=== PATIENT | female | born 1985 | race Caucasian/White ===

== ENCOUNTER 2018-08-02 22:38 | Emergency (ER) | payer SELFPAY ==
[~2018-08-02] VITALS: Ht 165.1 cm; Wt 97.3 kg
[2018-08-02] MEDS ORDERED: IBUP-2071 PO (22:46)
[2018-08-03] MEDS ORDERED: ACETAMINOPHEN 325 MG TABLET PO ONE (04:00)
[2018-08-03 04:06] VITALS: BP 119/71
== END 2018-08-03 04:06 | disposition home or self-care (01) ==
LOC: EMS 22:40
DX: S32.019A Unspecified fracture of first lumbar vertebra, initial encounter for closed fracture (principal); S09.90XA Unspecified injury of head, initial encounter; J45.909 Unspecified asthma, uncomplicated; F32.9 Major depressive disorder, single episode, unspecified; F41.9 Anxiety disorder, unspecified; F17.210 Nicotine dependence, cigarettes, uncomplicated; Z88.0 Allergy status to penicillin; Z91.040 Latex allergy status; W18.39XA Other fall on same level, initial encounter; Y93.01 Activity, walking, marching and hiking; Y92.89 Other specified places as the place of occurrence of the external cause; Y99.8 Other external cause status
CPT/HCPCS: 72100

== ENCOUNTER 2018-08-19 05:34 | Emergency (ER) | payer MEDICAID ==
[~2018-08-19] VITALS: Ht 162.6 cm; Wt 96.0 kg
[~2018-08-19 05:34] MED LIST: IBUP-2071 PO
[2018-08-19 06:00] LABS: APPEARANCE,URINE CLOUDY (CLEAR); BILIRUBIN,URINE PRELIM. POSITIVE (NEGATIVE); GLUCOSE, URINE (UA) NEGATIVE (NEGATIVE); KETONES,URINE TRACE mg/dL (NEGATIVE); LEUKOCYTE ESTERASE ,URINE NEGATIVE (NEGATIVE); NITRATE,URINE NEGATIVE (NEGATIVE); OCCULT BLOOD,URINE TRACE (NEGATIVE); PH,URINE 5.5 (5.0-8.0); PROTEIN,URINE TRACE (NEGATIVE)
[2018-08-19 06:04] LABS: BACTERIA,URINE Rare /HPF (None Seen); WBC,URINE 0-2 /HPF (0-5)
[2018-08-19 06:05] LABS: MUCUS,URINE Moderate LPF (None Seen); SQUAMOUS EPITHELIAL CELL,UR Moderate /LPF (None Seen)
[2018-08-19 06:29] VITALS: BP 112/78
== END 2018-08-19 06:37 | disposition home or self-care (01) ==
LOC: EMS 05:35
DX: N34.2 Other urethritis (principal); L30.4 Erythema intertrigo; J45.909 Unspecified asthma, uncomplicated; F41.9 Anxiety disorder, unspecified; F32.9 Major depressive disorder, single episode, unspecified; F17.210 Nicotine dependence, cigarettes, uncomplicated; F84.0 Autistic disorder; Z91.040 Latex allergy status; Z88.0 Allergy status to penicillin

== ENCOUNTER 2019-02-03 21:59 | Emergency (ER) | payer MEDICAID ==
[~2019-02-03] VITALS: Ht 162.6 cm; Wt 77.3 kg
[2019-02-03 22:51] LABS: EOSINOPHILS % (AUTO) 1.4 % (1.0-6.0); HEMATOCRIT 33.4 % (36-46); HEMOGLOBIN 10.5 g/dL (12.0-16.0); LYMPHOCYTES # (AUTO) 2.3 K/uL (1.0-4.8); LYMPHOCYTES % (AUTO) 26.1 % (22.0-44.0); MEAN CORPUSCULAR HEMOGLOBIN 23.8 pg (26.0-34.0); MEAN CORPUSCULAR HGB CONC 31.5 G/dL (31.0-37.0); MEAN CORPUSCULAR VOLUME 76 fL (80-100); MONOCYTES # (AUTO) 0.7 K/uL (0.1-1.0); NEUTROPHILS # (AUTO) 5.7 K/uL (1.8-7.7); NEUTROPHILS % (AUTO) 63.5 % (40.0-70.0); PLATELET COUNT (AUTO) 174 K/uL (150-450); RED BLOOD CELL COUNT(AUTO) 4.42 MIL/uL (4.00-5.20); RED CELL DISTRIBUTION WIDTH 16.7 % (11.5-14.5)
[2019-02-03 23:08] LABS: ANION GAP 8 mmol/L (8-16); CALCIUM, TOTAL 8.3 mg/dL (8.8-10.5); CARBON DIOXIDE 26 mmol/L (22-29); CHLORIDE 104 mmol/L (98-107); GLOMERULAR FILTR. RATE CALC > 60 mL/min (>60); GLUCOSE,RANDOM 113 mg/dL (70-110); POTASSIUM 3.5 mmol/L (3.5-5.1); SODIUM SERUM 138 mmol/L (136-145); UREA NITROGEN, BLOOD 10 mg/dL (7-18)
[2019-02-03 23:13] LABS: ALANINE AMINOTRANSFERASE 8 U/L (12-78); ALBUMIN 3.5 g/dL (3.4-5.0); ALKALINE PHOSPHATASE 94 U/L (46-116); ASPARTATE AMINOTRANSFERASE 8 U/L (15-37); BILIRUBIN,TOTAL 0.1 mg/dL (0.1-1.0); TOTAL PROTEIN, SERUM 6.8 g/dL (6.4-8.2)
[2019-02-03 23:35] LABS: AMPHET/METH SCREEN,URINE NEGATIVE (NEGATIVE); BARBITURATE SCREEN, URINE NEGATIVE (NEGATIVE); BENZODIAZEPINES SCREEN,URINE NEGATIVE (NEGATIVE); CANNABINOID SCREEN,URINE POSITIVE (NEGATIVE); COCAINE SCREEN,URINE NEGATIVE (NEGATIVE); METHADONE SCREEN, URINE NEGATIVE (NEGATIVE); OPIATE SCREEN,URINE NEGATIVE (NEGATIVE); PHENCYCLIDINE SCREEN,URINE NEGATIVE (NEGATIVE)
[2019-02-03 23:38] LABS: HCG,QUANTITATIVE < 1 mIU/mL (0-6)
[2019-02-04] MEDS ORDERED: IBUPROFEN 600 MG TABLET PO ONE (01:30)
[2019-02-04 01:35] VITALS: BP 116/78
== END 2019-02-04 02:03 | disposition home or self-care (01) ==
LOC: EMS 22:03
DX: F12.929 Cannabis use, unspecified with intoxication, unspecified (principal); R07.89 Other chest pain; F41.9 Anxiety disorder, unspecified; J45.909 Unspecified asthma, uncomplicated; F32.9 Major depressive disorder, single episode, unspecified; F17.210 Nicotine dependence, cigarettes, uncomplicated; Z88.0 Allergy status to penicillin; Z91.040 Latex allergy status
CPT/HCPCS: 36415; 80053; 80307; 84484; 84702; 85025; 93005; 99284; 99406; G0480

== ENCOUNTER 2019-10-06 05:02 | Inpatient (IN) | payer MEDICAID, OTHER ==
[~2019-10-06] VITALS: Ht 157.5 cm; Wt 87.5 kg
[2019-10-06 06:38] LABS: BASOPHILS % (AUTO) 0.4 % (0.0-2.0); EOSINOPHILS % (AUTO) 0.9 % (1.0-6.0); HEMATOCRIT 36.5 % (36-46); HEMOGLOBIN 11.9 g/dL (12.0-16.0); LYMPHOCYTES # (AUTO) 2.1 K/uL (1.0-4.8); LYMPHOCYTES % (AUTO) 25.2 % (22.0-44.0); MEAN CORPUSCULAR HEMOGLOBIN 25.4 pg (26.0-34.0); MEAN CORPUSCULAR HGB CONC 32.6 G/dL (31.0-37.0); MEAN CORPUSCULAR VOLUME 78 fL (80-100); MONOCYTES # (AUTO) 0.6 K/uL (0.1-1.0); MONOCYTES % (AUTO) 6.8 % (2.0-9.0); NEUTROPHILS # (AUTO) 5.6 K/uL (1.8-7.7); NEUTROPHILS % (AUTO) 66.7 % (40.0-70.0); PLATELET COUNT (AUTO) 159 K/uL (150-450); RED BLOOD CELL COUNT(AUTO) 4.68 MIL/uL (4.00-5.20); RED CELL DISTRIBUTION WIDTH 15.8 % (11.5-14.5)
[2019-10-06 06:49] LABS: ANION GAP 9 mmol/L (8-16); CALCIUM, TOTAL 9.1 mg/dL (8.8-10.5); CARBON DIOXIDE 28 mmol/L (22-29); CHLORIDE 104 mmol/L (98-107); CREATININE 0.63 mg/dL (0.60-1.30); GLOMERULAR FILTR. RATE CALC > 60 mL/min (>60); GLUCOSE,RANDOM 88 mg/dL (70-110); POTASSIUM 3.8 mmol/L (3.5-5.1); SODIUM SERUM 141 mmol/L (136-145); UREA NITROGEN, BLOOD 9 mg/dL (7-18)
[2019-10-06 06:58] LABS: AMPHET/METH SCREEN,URINE NEGATIVE (NEGATIVE); BARBITURATE SCREEN, URINE POSITIVE (NEGATIVE); BENZODIAZEPINES SCREEN,URINE NEGATIVE (NEGATIVE); CANNABINOID SCREEN,URINE POSITIVE (NEGATIVE); COCAINE SCREEN,URINE NEGATIVE (NEGATIVE); METHADONE SCREEN, URINE NEGATIVE (NEGATIVE); OPIATE SCREEN,URINE NEGATIVE (NEGATIVE)
[2019-10-06 06:59] LABS: PHENCYCLIDINE SCREEN,URINE NEGATIVE (NEGATIVE)
[2019-10-06 07:01] LABS: ALANINE AMINOTRANSFERASE 21 U/L (12-78); ALBUMIN 3.9 g/dL (3.4-5.0); ALKALINE PHOSPHATASE 87 U/L (46-116); ASPARTATE AMINOTRANSFERASE 11 U/L (15-37); BILIRUBIN,TOTAL 0.2 mg/dL (0.1-1.0); HCG,QUANTITATIVE < 1 mIU/mL (0-6); TOTAL PROTEIN, SERUM 7.8 g/dL (6.4-8.2)
[2019-10-06] MEDS ORDERED: PERMETHRIN 5% 60 GM CREAM TP ONE ×2 (08:00→16:30)
[2019-10-06] MEDS ORDERED: LOPERAMIDE HCL 2 MG CAPSULE PO PRN (09:00)
[2019-10-06] MEDS ORDERED: GuaiFENesin/D-METHORPHAN [SUGAR-FREE] 200-20MG/10 ML SYRUP UDCUP PO PRN (09:00)
[2019-10-06] MEDS: FLUoxetine HCL 20 MG CAPSULE PO SCH (09:00)
[2019-10-06] MEDS ORDERED: TUBERCULIN, PURIFIED PROTEIN DERIVATIVE 5 TU/0.1 ML SYRINGE ID ONE (09:00)
[2019-10-06] MEDS ORDERED: HydrOXYzine PAMOATE 50 MG CAPSULE PO PRN (09:00)
[2019-10-06] MEDS ORDERED: MAGNESIUM HYDROXIDE SUSPENSION 30 ML UDCUP PO PRN (09:00)
[2019-10-06] MEDS ORDERED: PROMETHAZINE HCL 25 MG TABLET PO PRN (09:00)
[2019-10-06] MEDS ORDERED: ACETAMINOPHEN 325 MG TABLET PO PRN (09:00)
[2019-10-06] MEDS ORDERED: MAG HYDROX/AL HYDROX/SIMETH ES 30 ML SUSPENSION UDCUP PO PRN (09:00)
[2019-10-06] MEDS: NALTREXONE HCL 50 MG TABLET PO SCH (09:00)
[2019-10-06] MEDS: MULTIVITAMINS WITH MINERALS, THERAPEUTIC TABLET PO SCH (09:00)
[2019-10-06] MEDS ORDERED: OLANZapine 5 MG RAPDIS TABLET PO PRN (09:00)
[2019-10-06] MEDS: THIAMINE MONONITRATE 100 MG TABLET PO SCH ×2 (09:35→16:12)
[2019-10-06] MEDS: FOLIC ACID 1 MG TABLET PO SCH (09:35)
[2019-10-06 17:51] VITALS: BP 118/91
[2019-10-06] MEDS: LORazepam 2 MG TABLET PO PRN (18:05)
[2019-10-06] MEDS: OLANZapine 5 MG RAPDIS TABLET PO SCH (20:48)
[2019-10-07] MEDS: LORazepam 2 MG TABLET PO PRN ×2 (01:29→12:37)
[2019-10-07] MEDS: ZOLPIDEM TARTRATE 10 MG TABLET PO PRN ×2 (01:29→20:47)
[2019-10-07] MEDS ORDERED: INFLUENZA VIRUS VACCINE QVS 2019-20 (3YR+)/PF 60 MCG/0.5 ML SYRINGE IM ONE (03:15)
[2019-10-07 03:29] VITALS: BP 112/82
[2019-10-07 08:00] VITALS: BP 121/88
[2019-10-07] MEDS: FLUoxetine HCL 20 MG CAPSULE PO SCH (08:48)
[2019-10-07] MEDS: THIAMINE MONONITRATE 100 MG TABLET PO SCH ×2 (08:51→17:18)
[2019-10-07] MEDS: NALTREXONE HCL 50 MG TABLET PO SCH (08:51)
[2019-10-07] MEDS: MULTIVITAMINS WITH MINERALS, THERAPEUTIC TABLET PO SCH (08:51)
[2019-10-07] MEDS: FOLIC ACID 1 MG TABLET PO SCH (08:51)
[2019-10-07] MEDS ORDERED: ALBUTEROL SULFATE/IPRATROPIUM 100-20 MCG/SPRAY 4 GM INHALER IH PRN (12:30)
[2019-10-07 17:48] VITALS: BP 132/72
[2019-10-07] MEDS: OLANZapine 5 MG RAPDIS TABLET PO SCH (20:39)
[2019-10-07] MEDS ORDERED: LORazepam 2 MG/ML VIAL IM ONE (21:30)
[2019-10-07] MEDS ORDERED: HALOPERIDOL LACTATE 5 MG/ML VIAL IM ONE (21:30)
[2019-10-07] MEDS ORDERED: DiphenhydrAMINE HCL 50 MG/ML VIAL IM ONE (21:30)
[2019-10-08] MEDS: MULTIVITAMINS WITH MINERALS, THERAPEUTIC TABLET PO SCH (09:00)
[2019-10-08] MEDS: FLUoxetine HCL 20 MG CAPSULE PO SCH (09:00)
[2019-10-08] MEDS: FOLIC ACID 1 MG TABLET PO SCH (09:00)
[2019-10-08] MEDS: THIAMINE MONONITRATE 100 MG TABLET PO SCH ×2 (09:00→16:13)
[2019-10-08] MEDS: NALTREXONE HCL 50 MG TABLET PO SCH (09:00)
[2019-10-08] MEDS: LORazepam 2 MG TABLET PO PRN (17:46)
[2019-10-08 18:00] VITALS: BP 121/76
[2019-10-08] MEDS ORDERED: OLAN5TAB30 PO (20:09)
[2019-10-08] MEDS ORDERED: NALT50TA PO (20:09)
[2019-10-08] MEDS ORDERED: FLUO-191 PO (20:09)
[2019-10-08] MEDS: ZOLPIDEM TARTRATE 10 MG TABLET PO PRN (20:47)
[2019-10-08] MEDS: OLANZapine 5 MG RAPDIS TABLET PO SCH (20:47)
[2019-10-09] MEDS: LORazepam 2 MG TABLET PO PRN (08:10)
[2019-10-09] MEDS: FLUoxetine HCL 20 MG CAPSULE PO SCH (08:10)
[2019-10-09] MEDS: NALTREXONE HCL 50 MG TABLET PO SCH (08:10)
[2019-10-09] MEDS: THIAMINE MONONITRATE 100 MG TABLET PO SCH (09:00)
[2019-10-09] MEDS: FOLIC ACID 1 MG TABLET PO SCH (09:00)
[2019-10-09] MEDS: MULTIVITAMINS WITH MINERALS, THERAPEUTIC TABLET PO SCH (09:00)
== END 2019-10-09 13:00 | disposition home or self-care (01) | DRG 885 ==
LOC: EMS 05:02 → 3EI 09:28
PROVIDERS: ADMIT Psychiatry & Neurology Psychiatry; ATTEND Psychiatry & Neurology Psychiatry
DX: F25.9 Schizoaffective disorder, unspecified (principal); Z59.0 Homelessness; F41.9 Anxiety disorder, unspecified; Z91.19 Patient's noncompliance with other medical treatment and regimen; F84.0 Autistic disorder; F17.210 Nicotine dependence, cigarettes, uncomplicated; F12.20 Cannabis dependence, uncomplicated; J44.9 Chronic obstructive pulmonary disease, unspecified; D64.9 Anemia, unspecified; Z88.0 Allergy status to penicillin; Z88.8 Allergy status to other drugs, medicaments and biological substances
CPT/HCPCS: G0480; J1200; J1630; J2060

== ENCOUNTER 2019-11-07 14:40 | Inpatient (IN) | payer MEDICAID ==
[~2019-11-07 14:40] MED LIST changes: +FLUO-191 PO; -IBUP-2071 PO; +NALT50TA PO; +OLAN5TAB30 PO
[2019-11-07 15:29] VITALS: BP 130/90
[2019-11-07] MEDS ORDERED: GuaiFENesin/D-METHORPHAN [SUGAR-FREE] 200-20MG/10 ML SYRUP UDCUP PO PRN (16:15)
[2019-11-07] MEDS ORDERED: MAG HYDROX/AL HYDROX/SIMETH ES 30 ML SUSPENSION UDCUP PO PRN (16:15)
[2019-11-07] MEDS ORDERED: LOPERAMIDE HCL 2 MG CAPSULE PO PRN (16:15)
[2019-11-07] MEDS ORDERED: PROMETHAZINE HCL 25 MG TABLET PO PRN ×2 (16:15)
[2019-11-07] MEDS ORDERED: HydrOXYzine PAMOATE 50 MG CAPSULE PO PRN (16:15)
[2019-11-07] MEDS ORDERED: ACETAMINOPHEN 325 MG TABLET PO PRN (16:15)
[2019-11-07] MEDS ORDERED: MAGNESIUM HYDROXIDE SUSPENSION 30 ML UDCUP PO PRN (16:15)
[2019-11-07] MEDS ORDERED: PALIPERIDONE PALMITATE 234 MG/1.5 ML SYRINGE IM ONE (16:15)
[2019-11-07] MEDS: THIAMINE 100 MG TABLET PO SCH (17:00)
[2019-11-07] MEDS ORDERED: PNEUMOCOCCAL VACCINE POLYVALENT 0.5 ML VIAL [PPSV23] IM ONE (19:45)
[2019-11-07] MEDS: PALIPERIDONE 3 MG ER TABLET PO SCH (20:25)
[2019-11-08] MEDS: LORazepam 2 MG TABLET PO PRN ×3 (00:09→16:53)
[2019-11-08] MEDS: FOLIC ACID 1 MG TABLET PO SCH (09:00)
[2019-11-08] MEDS: NALTREXONE HCL 50 MG TABLET PO SCH (09:00)
[2019-11-08] MEDS: MULTIVITAMINS WITH MINERALS, THERAPEUTIC TABLET PO SCH (09:00)
[2019-11-08] MEDS: FLUoxetine HCL 20 MG CAPSULE PO SCH (09:00)
[2019-11-08] MEDS: THIAMINE 100 MG TABLET PO SCH ×2 (09:00→16:54)
[2019-11-08] MEDS: PALIPERIDONE 1.5 MG ER TABLET PO PRN (12:28)
[2019-11-08] MEDS: BACITRACIN 28.4 GM OINTMENT TP SCH ×2 (12:28→17:05)
[2019-11-08] MEDS: PALIPERIDONE 3 MG ER TABLET PO SCH (20:01)
[2019-11-08] MEDS: ZOLPIDEM TARTRATE 10 MG TABLET PO PRN (22:55)
[2019-11-09 02:36] VITALS: BP 120/85
[2019-11-09] MEDS: LORazepam 2 MG TABLET PO PRN ×2 (03:25→12:28)
[2019-11-09] MEDS: MULTIVITAMINS WITH MINERALS, THERAPEUTIC TABLET PO SCH (09:00)
[2019-11-09] MEDS: FOLIC ACID 1 MG TABLET PO SCH (09:00)
[2019-11-09] MEDS: THIAMINE 100 MG TABLET PO SCH ×2 (09:00→16:36)
[2019-11-09] MEDS: FLUoxetine HCL 20 MG CAPSULE PO SCH (09:00)
[2019-11-09] MEDS: NALTREXONE HCL 50 MG TABLET PO SCH (09:00)
[2019-11-09] MEDS: BACITRACIN 28.4 GM OINTMENT TP SCH ×2 (10:01→16:45)
[2019-11-09] MEDS: PALIPERIDONE 1.5 MG ER TABLET PO PRN (14:48)
[2019-11-09] MEDS: PALIPERIDONE 3 MG ER TABLET PO SCH (20:15)
[2019-11-09] MEDS: ZOLPIDEM TARTRATE 10 MG TABLET PO PRN (20:16)
[2019-11-10] MEDS: THIAMINE 100 MG TABLET PO SCH ×2 (08:09→16:26)
[2019-11-10] MEDS: FLUoxetine HCL 20 MG CAPSULE PO SCH (08:10)
[2019-11-10] MEDS: BACITRACIN 28.4 GM OINTMENT TP SCH ×2 (08:11→16:26)
[2019-11-10] MEDS: NALTREXONE HCL 50 MG TABLET PO SCH (08:12)
[2019-11-10] MEDS: FOLIC ACID 1 MG TABLET PO SCH (08:15)
[2019-11-10] MEDS: MULTIVITAMINS WITH MINERALS, THERAPEUTIC TABLET PO SCH (08:15)
[2019-11-10 08:31] LABS: APPEARANCE,URINE CLOUDY (CLEAR); BILIRUBIN,URINE NEGATIVE (NEGATIVE); GLUCOSE, URINE (UA) NEGATIVE (NEGATIVE); KETONES,URINE NEGATIVE (NEGATIVE); LEUKOCYTE ESTERASE ,URINE SMALL (NEGATIVE); NITRATE,URINE NEGATIVE (NEGATIVE); OCCULT BLOOD,URINE NEGATIVE (NEGATIVE); PH,URINE 5.5 (5.0-8.0); PROTEIN,URINE NEGATIVE (NEGATIVE); UROBILINOGEN,URINE 0.2 mg/dL (<=1.0)
[2019-11-10 08:40] LABS: AMPHET/METH SCREEN,URINE NEGATIVE (NEGATIVE); BARBITURATE SCREEN, URINE NEGATIVE (NEGATIVE); BENZODIAZEPINES SCREEN,URINE NEGATIVE (NEGATIVE); CANNABINOID SCREEN,URINE POSITIVE (NEGATIVE); COCAINE SCREEN,URINE NEGATIVE (NEGATIVE); METHADONE SCREEN, URINE NEGATIVE (NEGATIVE); OPIATE SCREEN,URINE NEGATIVE (NEGATIVE)
[2019-11-10 08:41] LABS: PHENCYCLIDINE SCREEN,URINE NEGATIVE (NEGATIVE)
[2019-11-10 09:57] LABS: BACTERIA,URINE None Seen /HPF (None Seen); RBC,URINE None Seen /HPF (0-2); WBC,URINE 0-2 /HPF (0-5)
[2019-11-10 09:58] LABS: SQUAMOUS EPITHELIAL CELL,UR Moderate /LPF (None Seen)
[2019-11-10 16:19] VITALS: BP 126/78
[2019-11-10] MEDS: ZOLPIDEM TARTRATE 10 MG TABLET PO PRN (20:43)
[2019-11-10] MEDS ORDERED: PALIPERIDONE 6 MG ER TABLET PO SCH (21:00)
[2019-11-11 08:20] VITALS: BP 128/74
[2019-11-11] MEDS: FOLIC ACID 1 MG TABLET PO SCH (08:20)
[2019-11-11] MEDS: MULTIVITAMINS WITH MINERALS, THERAPEUTIC TABLET PO SCH (08:20)
[2019-11-11] MEDS: THIAMINE 100 MG TABLET PO SCH ×2 (08:20→16:30)
[2019-11-11] MEDS: BACITRACIN 28.4 GM OINTMENT TP SCH ×2 (08:21→17:28)
[2019-11-11] MEDS: FLUoxetine HCL 20 MG CAPSULE PO SCH (08:22)
[2019-11-11] MEDS: PANTOPRAZOLE SODIUM 40 MG DR TABLET PO SCH (08:23)
[2019-11-11] MEDS: NALTREXONE HCL 50 MG TABLET PO SCH (08:27)
[2019-11-11] MEDS ORDERED: PALIPERIDONE PALMITATE 156 MG/ML SYRINGE IM ONE (09:00)
[2019-11-11] MEDS: LORazepam 2 MG TABLET PO PRN ×2 (10:52→23:58)
[2019-11-11 16:23] VITALS: BP 147/76
[2019-11-11] MEDS: ZOLPIDEM TARTRATE 10 MG TABLET PO PRN (20:41)
[2019-11-11] MEDS ORDERED: PALIPERIDONE 3 MG ER TABLET PO SCH (21:00)
[2019-11-12 01:06] VITALS: BP 133/89
[2019-11-12] MEDS: PANTOPRAZOLE SODIUM 40 MG DR TABLET PO SCH (08:16)
[2019-11-12] MEDS: FLUoxetine HCL 20 MG CAPSULE PO SCH (08:16)
[2019-11-12] MEDS: NALTREXONE HCL 50 MG TABLET PO SCH (08:16)
[2019-11-12] MEDS: BACITRACIN 28.4 GM OINTMENT TP SCH ×2 (08:17→17:12)
[2019-11-12] MEDS: FOLIC ACID 1 MG TABLET PO SCH (08:25)
[2019-11-12] MEDS: THIAMINE 100 MG TABLET PO SCH ×2 (08:26→17:00)
[2019-11-12] MEDS: MULTIVITAMINS WITH MINERALS, THERAPEUTIC TABLET PO SCH (08:26)
[2019-11-12 09:03] VITALS: BP 125/71
[2019-11-12] MEDS: LORazepam 2 MG TABLET PO PRN (09:52)
[2019-11-12 14:40] VITALS: BP 132/80
[2019-11-12] MEDS ORDERED: FLUO-191 PO (15:16)
[2019-11-12] MEDS ORDERED: NALT50TA PO (15:16)
[2019-11-12] MEDS ORDERED: PALI3TAB14 PO (15:16)
[2019-11-12 16:10] VITALS: BP 118/68
[2019-11-12] MEDS: ZOLPIDEM TARTRATE 10 MG TABLET PO PRN (20:38)
[2019-11-12] MEDS ORDERED: PALIPERIDONE 3 MG ER TABLET PO SCH (21:00)
[2019-11-13] MEDS: PANTOPRAZOLE SODIUM 40 MG DR TABLET PO SCH (08:08)
[2019-11-13] MEDS: NALTREXONE HCL 50 MG TABLET PO SCH (08:08)
[2019-11-13] MEDS: FLUoxetine HCL 20 MG CAPSULE PO SCH (08:08)
[2019-11-13 08:13] VITALS: BP 129/89
[2019-11-13] MEDS: FOLIC ACID 1 MG TABLET PO SCH (08:25)
[2019-11-13] MEDS: MULTIVITAMINS WITH MINERALS, THERAPEUTIC TABLET PO SCH (08:26)
[2019-11-13] MEDS: BACITRACIN 28.4 GM OINTMENT TP SCH (08:26)
[2019-11-13] MEDS: THIAMINE 100 MG TABLET PO SCH (08:26)
== END 2019-11-13 10:00 | disposition home or self-care (01) | DRG 750 ==
LOC: B2S 16:17
PROVIDERS: ADMIT Psychiatry & Neurology Psychiatry; ATTEND Psychiatry & Neurology Psychiatry
DX: F25.1 Schizoaffective disorder, depressive type (principal); R45.851 Suicidal ideations; Z59.0 Homelessness; F31.9 Bipolar disorder, unspecified; F84.5 Asperger's syndrome; J44.9 Chronic obstructive pulmonary disease, unspecified; N83.209 Unspecified ovarian cyst, unspecified side; D64.9 Anemia, unspecified; F41.9 Anxiety disorder, unspecified; R10.9 Unspecified abdominal pain; R41.843 Psychomotor deficit; F12.10 Cannabis abuse, uncomplicated; F15.10 Other stimulant abuse, uncomplicated; F17.210 Nicotine dependence, cigarettes, uncomplicated; F90.9 Attention-deficit hyperactivity disorder, unspecified type; Z65.3 Problems related to other legal circumstances; Z79.899 Other long term (current) drug therapy; Z91.14 Patient's other noncompliance with medication regimen; Z91.19 Patient's noncompliance with other medical treatment and regimen; Z88.0 Allergy status to penicillin
CPT/HCPCS: 76700; 76830; 76856; 80307